=== PATIENT | male | born 1935 | race Caucasian/White ===

== ENCOUNTER 2022-05-31 11:50 | Emergency (ER) | payer OTHER ==
[2022-05-31] MEDS ORDERED: GLUCAGON 1 MG/VIAL ONE (12:47)
[2022-05-31 12:50] LABS: Absolute Lymphocytes (CBC) 1.3 K/uL (0.7-4.9); Hematocrit 41.5 % (39.6-49.0); Lymphocytes % 16.4 % (15.3-44.8); MCV 99.2 fL (80-100); RBC Red Blood Cell Count 4.18 M/uL (4.33-5.43)
[2022-05-31 13:03] LABS: Potassium 3.9 mmol/L (3.5-5.1)
--- NOTE | 2022-05-31 14:53 | ER ---
Nurse's Notes [facility] Name: Adriel Hoffman Age: 87 yrs Sex: Male : 1935 Arrival Date: 05/31/2022 Time: 11:56 Bed 13 Private MD: Diagnosis: Esophageal food bolus Presentation: 05/31 12:03 Chief complaint: Patient states: Was eating chicken breast for dinner last night and ph feels like a piece is stuck in his throat, reports pain when swallowing, denies difficulty breathing, Was unable to take home meds. Coronavirus screen: Vaccine status: Patient reports receiving the 2nd dose of the covid vaccine. Ebola Screen: No symptoms or risks identified at this time. Initial Sepsis Screen: Does the patient meet any 2 criteria? No. Patient's initial sepsis screen is negative. Does the patient have a suspected source of infection? No. Patient's initial sepsis screen is negative. Risk Assessment: Do you want to hurt yourself or someone else? Patient reports no desire to harm self or others. Onset of symptoms was May 31, 2022. 12:03 Method Of Arrival: Ambulatory ph 12:03 Acuity: MOHSEN 3 ph Triage Assessment: 12:05 General: Appears in no apparent distress. Behavior is calm, cooperative, appropriate ph for age. Pain: Complains of pain in neck. Respiratory: Airway is patent Respiratory effort is even, unlabored, Respiratory pattern is regular, symmetrical, Denies shortness of breath. Historical: - Allergies: 12:04 No Known Allergies; ph - PMHx: 12:04 Hypertensive disorder; ph - Immunization history:: Adult Immunizations up to date. - Social history:: Smoking status: Patient reports the use of cigarette tobacco products, smokes one-half pack cigarettes per day. Screenin:10 Abuse screen: Denies threats or abuse. Nutritional screening: No deficits noted. ll1 Tuberculosis screening: No symptoms or risk factors identified. Fall Risk IV access (20 points). Gait- Impaired (20 pts.). Total Coronado Fall Scale indicates Low Risk Score (25-44 pts). Fall prevention measures have been instituted. Side Rails Up X 2 Placed close to Nursing Station Frequent Obs/Assesments occuring Family Present and informed to notify staff if they need to leave bedside As available Patient and Family Educated on Fall Prevention Program and strategies. Assessment: 13:05 Reassessment: No changes from previously documented assessment. Patient and/or family ll1 updated on plan of care and expected duration. Pain level reassessed. Patient is alert, oriented x 3, equal unlabored respirations, skin warm/dry/pink. 14:00 Reassessment: No changes from previously documented assessment. Patient and/or family ll1 updated on plan of care and expected duration. Pain level reassessed. 14:51 Reassessment: Initiated transfer with [facility] with coordinator, Rachelle. Clinicals ss faxed to [phone]. Awaiting for phone call back from floor worker transfer bay. 15:00 Reassessment: No changes from previously documented assessment. Patient and/or family ll1 updated on plan of care and expected duration. Pain level reassessed. 15:49 Reassessment: No changes from previously documented assessment. Patient and/or family ll1 updated on plan of care and expected duration. Pain level reassessed. Patient is alert, oriented x 3, equal unlabored respirations, skin warm/dry/pink. 16:15 Reassessment: No changes from previously documented assessment. Patient and/or family ll1 updated on plan of care and expected duration. Pain level reassessed. 17:11 Reassessment: No changes from previously documented assessment. Patient and/or family ll1 updated on plan of care and expected duration. Pain level reassessed. 18:15 Reassessment: No changes from previously documented assessment. Patient and/or family ll1 updated on plan of care and expected duration. Pain level reassessed. Patient is alert, oriented x 3, equal unlabored respirations, skin warm/dry/pink. Vital Signs: 12:03 BP 173 / 60; Pulse 48; Resp 18; Temp 98.9; Pulse Ox 98% on R/A; Weight 61.23 kg; Height ph 5 ft. 7 in. (170.18 cm); 13:10 BP 132 / 61; Pulse 69; Resp 17; Pulse Ox 96% on R/A; ll1 14:10 BP 135 / 68; Pulse 78; Pulse Ox 97% ; ll1 15:14 BP 136 / 71; Pulse 76; Resp 16; Pulse Ox 98% ; ll1 15:49 BP 139 / 64; Pulse 76; Resp 17; Temp 98.2; Pulse Ox 98% on R/A; ll1 17:30 BP 138 / 63; Pulse 56; Pulse Ox 98% on R/A; ll1 18:56 BP 132 / 68; Pulse 69; Resp 17; Pulse Ox 98% ; ll1 19:16 BP 130 / 72; Pulse 70; Resp 16; Pulse Ox 96% on R/A; ll3 12:03 Body Mass Index 21.14 (61.23 kg, 170.18 cm) ph ED Course: 11:56 Patient arrived in ED. mr 12:00 Bry Peñaloza DO is Attending Physician. ms3 12:04 Triage completed. ph 12:05 Arm band placed on Patient placed in an exam room, on a stretcher. 12:15 Navi Amador, MALKA is Primary Nurse. ll1 12:30 Missed attempt(s): 22 gauge in right antecubital area. Bleeding controlled, band aid ll1 applied, catheter tip intact. 12:35 Inserted saline lock: 22 gauge in left antecubital area, using aseptic technique. Blood ll1 collected. 13:11 Patient has correct armband on for positive identification. Bed in low position. Call ll1 light in reach. Side rails up X 1. Client placed on continuous cardiac and pulse oximetry monitoring. NIBP monitoring applied. 16:46 Dr. Ellen Luna spoke with Dr. Peñaloza from the [facility]. [facility] 16:57 Spoke with Aj Ferrell at [facility] for acceptance with Dr. Ellen Luna. 3 17:11 No provider procedures requiring assistance completed. Patient transferred, IV remains ll1 in place. Administered Medications: 12:46 Drug: Glucagon 1 mg Route: IVP; Site: left antecubital; ll1 13:09 Follow up: Response: No adverse reaction; Pain is unchanged, physician notified; RASS: ll1 Alert and Calm (0) Medication: 13:10 VIS not applicable for this client. ll1 Outcome: 14:51 Instructed on the need for transfer. 14:52 ER care complete, transfer ordered by . ms3 17:12 Transferred by ground EMS to [facility] Transfer form completed. ll1 Note: report given to MALKA Harrell in ED at [place] 17:12 Condition: stable 19:21 Patient left the ED. ll3 Signatures: Lisa Vidal Shelby, RN RN ss Talia Conroy RN RN Fang Barnes 3 Navi Amador RN RN ll1 Bry Peñaloza, DO VILLAGOMEZ ms3 Trini Reddy RN RN ll3 Corrections: (The following items were deleted from the chart) 17:16 17:12 Transferred by ground EMS to [facility] Transfer form ll1 completed. ll1
--- NOTE | 2022-05-31 14:53 | EDPHYS ---
Physician Documentation [facility] Name: Adriel Hoffman Age: 87 yrs Sex: Male : 1935 Arrival Date: 05/31/2022 Time: 11:56 Bed 13 Private MD: ED Physician Bry Peñaloza HPI: 05/31 15:02 This 87 yrs old Male presents to ER via Ambulatory with complaints of Foreign Body In ms3 Throat. 15:02 The patient or guardian reports the patient has a suspected foreign body, of the ms3 throat. 87-year-old male with past medical history of hypertension presents for "chicken enchilada not going down." Patient states he had chicken enchiladas last night and has had a sensation of fullness in his esophagus since that time. Patient states he is unable to tolerate p.o. as when he drinks water it comes back up. Patient denies pain at this time. Patient denies alleviating or inciting factors.. Historical: - Allergies: 12:04 No Known Allergies; ph - PMHx: 12:04 Hypertensive disorder; ph - Immunization history:: Adult Immunizations up to date. - Social history:: Smoking status: Patient reports the use of cigarette tobacco products, smokes one-half pack cigarettes per day. ROS: 15:02 Constitutional: Negative for fever, and chills. Neck: Negative for injury, pain, and ms3 swelling, Cardiovascular: Negative for chest pain, and palpitations. Respiratory: Negative for shortness of breath, cough, wheezing, and pleuritic chest pain. 15:02 Skin: Negative for injury, rash, and discoloration. 15:02 Abdomen/GI: Positive for Foreign body in throat. 15:02 All other systems are negative. Exam: 15:02 Constitutional: This is a well developed, well nourished patient who is awake, alert, ms3 and in no acute distress. Eyes: Pupils equal round and reactive to light, extra-ocular motions intact. Lids and lashes normal. Conjunctiva and sclera are non-icteric and not injected. Periorbital areas with no swelling, redness, or edema. Neck: Trachea midline, no cervical lymphadenopathy. Supple, full range of motion without nuchal rigidity, or vertebral point tenderness. No Meningismus. Chest/axilla: Normal chest wall appearance and motion. Nontender with no deformity. Cardiovascular: Regular rate and rhythm with a normal S1 and S2. No gallops, murmurs, or rubs. Normal PMI, no JVD. No pulse deficits. Respiratory: Lungs have equal breath sounds bilaterally, clear to auscultation and percussion. No rales, rhonchi or wheezes noted. No increased work of breathing, no retractions or nasal flaring. Abdomen/GI: Soft, non-tender, with normal bowel sounds. No distension or tympany. No guarding or rebound. No evidence of tenderness throughout. Back: No spinal tenderness. No costovertebral tenderness. Full range of motion. Skin: Warm, dry with normal turgor. Normal color with no rashes, no lesions, and no evidence of cellulitis. Vital Signs: 12:03 BP 173 / 60; Pulse 48; Resp 18; Temp 98.9; Pulse Ox 98% on R/A; Weight 61.23 kg; Height ph 5 ft. 7 in. (170.18 cm); 13:10 BP 132 / 61; Pulse 69; Resp 17; Pulse Ox 96% on R/A; ll1 14:10 BP 135 / 68; Pulse 78; Pulse Ox 97% ; ll1 15:14 BP 136 / 71; Pulse 76; Resp 16; Pulse Ox 98% ; ll1 15:49 BP 139 / 64; Pulse 76; Resp 17; Temp 98.2; Pulse Ox 98% on R/A; ll1 17:30 BP 138 / 63; Pulse 56; Pulse Ox 98% on R/A; ll1 18:56 BP 132 / 68; Pulse 69; Resp 17; Pulse Ox 98% ; ll1 19:16 BP 130 / 72; Pulse 70; Resp 16; Pulse Ox 96% on R/A; ll3 12:03 Body Mass Index 21.14 (61.23 kg, 170.18 cm) ph MDM: 12:17 Patient medically screened. ms3 15:02 Data reviewed: vital signs, nurses notes, lab test result(s), and as a result, I will ms3 Transfer patient. Counseling: I had a detailed discussion with the patient and/or guardian regarding: the historical points, exam findings, and any diagnostic results supporting the discharge/admit diagnosis, lab results, the need to transfer to another facility, [facility] does not immediately have the required specialist. ED course: Discussed transfer to [facility], or [place] patient's family declines. Patient family states [facility] [place] and [facility]. [facility] they [facility] to go to [place].. 17:04 ED course: Discussed case with Dr. Luna and [facility].. ms3 05/31 12:18 Order name: CBC with Diff; Complete Time: 13:18 ms3 05/31 12:18 Order name: BMP; Complete Time: 13:18 ms3 05/31 14:31 Order name: SARS RAPID; Complete Time: 16:46 6 Administered Medications: 12:46 Drug: Glucagon 1 mg Route: IVP; Site: left antecubital; ll1 13:09 Follow up: Response: No adverse reaction; Pain is unchanged, physician notified; RASS: ll1 Alert and Calm (0) Disposition Summary: 05/31/22 14:52 Transfer Ordered Transfer Location: Other Acute Care Facility ms3 Reason: Higher level of care ms3 Condition: Stable ms3 Problem: new ms3 Symptoms: are unchanged ms3 Accepting Physician: (05/31/22 19:21) ll3 Diagnosis - Esophageal food bolus ms3 Forms: - Medication Reconciliation Form ms3 - SBAR form ms3 Signatures: Dispatcher [employer] EDTalia Gil RN RN ph Lewis, Lynsay, RN RN ll1 Bry Peñaloza DO DO ms3 Trini Reddy RN RN ll3 Corrections: (The following items were deleted from the chart) 19:21 14:52 Dr lao3 ll3
[2022-05-31 15:07] LABS: SARS-CoV-2 Antigen Rapid Res Negative (Negative)
[2022-05-31 20:51] VITALS: TEMP 98.2
[2022-05-31 20:59] VITALS: BP 130/72; O2SAT 96
== END 2022-05-31 19:21 ==
LOC: ER 11:50
DX: T18.128A Food in esophagus causing other injury, initial encounter (principal); I10 Essential (primary) hypertension; F17.210 Nicotine dependence, cigarettes, uncomplicated; Z20.822 Contact with and (suspected) exposure to COVID-19
CPT/HCPCS: 85025; 80048; 36415; 96374; 99285; 87811; J1610